=== PATIENT | male | born 2000 | race Caucasian/White ===

== ENCOUNTER 2020-01-15 14:55 | Emergency (ER) | payer OTHER, SELFPAY ==
[2020-01-15 15:03] VITALS: BP 141/87; PULSE 79; RESP 16; TEMP 37.3; O2SAT 100
--- NOTE | 2020-01-15 15:25 | ED.URI ---
HPI - URI/Sore Throat General Chief Complaint: Upper Respiratory Infection Stated Complaint: SORE THROAT Time Seen by Provider: 01/15/20 15:25 Source: patient Mode of arrival: ambulatory Limitations: no limitations History of Present Illness HPI Narrative: A 19 y/o male, who is an occasional smoker/occasional drinker, presents to with c/o a sore throat for 2 days. Pt states that he last took antibiotics 2 weeks ago for similar complaints. He denies an earache, TA, and a cough. Onset (ago): day(s) (2) Related Data Home Medications Medication Instructions Recorded Confirmed amoxicillin 01/15/20 Allergies Allergy/AdvReac Type Severity Reaction Status Date / Time No Known Allergies Allergy Mild Verified 01/15/20 15:11 Review of Systems Review of Systems: Narrative: The patient has been informed that they may have pre-hypertension or Hypertension based on a BP reading in the department. I recommend that the patient call the primary care provider listed on their discharge instructions or a physician of their choice this week to arrange follow up for further evaluation of possible pre-hypertension or Hypertension General/Constitutional: No weight loss,fever Eyes: N0: Redness,discharge Ears/Nose/Throat: No: Epistaxis,ear discharge Respiratory: Denies: Hemoptysis Gastrointestinal: No Vomiting, Bleeding-rectal Skin: No Lumps, eruption Neurologic: No Focal Weakness,Sz Hematologic: Denies: Petechiae/Purpura Psychiatric: No: Suicida ideationl All Other Systems: Reviewed and Negative [facility] Surgical History Surgical History (Updated 01/15/20 @ 15:32 by Luly Stanton) History of inguinal hernia repair x2 Social History Social History (Updated 01/15/20 @ 15:32 by Luly Stanton) Smoking status: Current some day smoker Alcohol intake: current Comments PCP: Dr. Sage At time of signature, agree with nursing past medical, surgical, social and family history. There is no relevant family history pertinent to the presenting complaint Course Vital Signs Vital signs: Vital Signs Temperature 99.1 F 01/15/20 15:03 Pulse Rate 79 01/15/20 15:03 Respiratory Rate 16 01/15/20 15:03 Blood Pressure 141/87 H 01/15/20 15:03 Pulse Oximetry 100 01/15/20 15:03 Temperature 99.1 F 01/15/20 15:03 Pulse Rate 79 01/15/20 15:03 Respiratory Rate 16 01/15/20 15:03 Blood Pressure 141/87 H 01/15/20 15:03 Pulse Oximetry 100 01/15/20 15:03 MDM - URI/Sore Throat Lab Data Labs: Strep Screen Presumptive Negative *(Reference Range: Negative)* Discharge Plan Discharge Clinical Impression: Pharyngitis Qualifiers: Pharyngitis/tonsillitis etiology: unspecified etiology Qualified Code(s): J02.9 - Acute pharyngitis, unspecified Patient Disposition: Home, Self-Care Condition: Stable Instructions: Antibiotic Form, Pharyngitis (ED) Prescriptions: New amoxicillin-pot clavulanate [Augmentin] 500-125 mg tablet 1 tablet PO Q12H Qty: 20 RF: 0 Lidocaine Viscous 2 % solution 5 ml MUCOUS MEM QID PRN (Reason: pain) Qty: 100 RF: 0 No Action amoxicillin RF: 0 Interventions: Discharge Disposition Last Done: 01/15/20 15:33 Follow-up/Referrals: UNKNOWN,DOCTOR [Primary Care Provider] - Stand Alone Forms: Work/School Release IP Discharge Date/Time: 01/15/20 15:33
== END 2020-01-15 15:33 | disposition home or self-care (01) ==
PROVIDERS: Emergency Provider Emergency Medicine
DX: J02.9 Acute pharyngitis, unspecified (principal); Z72.0 Tobacco use
CPT/HCPCS: 87081; 87880; 99203; G0463

== ENCOUNTER 2022-03-12 17:28 | Emergency (ER) | payer SELFPAY ==
[2022-03-12 17:33] VITALS: BP 134/77; PULSE 64; RESP 16; TEMP 37; O2SAT 100
--- NOTE | 2022-03-12 17:41 | ED.GENADULT ---
HPI - General Adult General Chief complaint: Nausea/Vomiting/Diarrhea Stated complaint: acif reflux/throat swelling Time Seen by Provider: 03/12/22 17:40 Source: patient Mode of arrival: ambulatory Limitations: no limitations History of Present Illness HPI narrative: 21-year-old male presents with complaint of acid reflux for approximately 2 weeks. Not taking any bryo-yrl-vdqvouj medications to treat his symptoms. States that he wakes up and throat has been feeling raw. The last 2 days his throat feels swollen and like something is stuck in it. Reports that he had indigestion a year ago that lasted about 5 months. States that he took Tums which never seem to help. He reports that he eats a lot of fast food. He does not have a primary care physician to follow-up with. He states that he does not have health insurance and will not be able to be seen anywhere else at this time. He denies abdominal pain but reports nausea at times. No vomiting. Having normal bowel movements. Patient going on a camping trip this weekend and wanted to make sure it was okay if he went camping with the symptoms. All systems reviewed and negative except as noted above. Related Data Allergies Allergy/AdvReac Type Severity Reaction Status Date / Time No Known Allergies Allergy Mild Verified 01/15/20 15:11 Review of Systems Review of Systems: CONSTITUTIONAL: Denies fever, chills, or sweats. EYES: Denies visual changes, redness, or discharge. ENT: Denies rhinorrhea, congestion, sore throat, or otalgia. CARDIOVASCULAR: Denies chest pain, palpitations, or edema. RESPIRATORY: Denies cough or dyspnea. GASTROINTESTINAL: Denies abdominal pain, vomiting, or diarrhea. Reports indigestion and nausea. GENITOURINARY: Denies dysuria or hematuria. SKIN: Denies rash or itching. MUSCULOSKELETAL: Denies back pain, joint pain, or myalgia. NEUROLOGIC: Denies headache, numbness, or weakness. PSYCHIATRIC: Denies anxiety or depression. All other systems reviewed are negative, except as documented in HPI. [facility] Surgical History Surgical History (Updated 01/15/20 @ 15:32 by Luly Stanton) History of inguinal hernia repair x2 Social History Social History (Updated 01/15/20 @ 15:32 by Luly Stanton) Smoking status: Current some day smoker Alcohol intake: current Comments At time of signature, agree with nursing past medical, surgical, social and family history. There is no relevant family history pertinent to the presenting complaint. Exam Narrative: GENERAL: This is a well-nourished, well-developed patient, in no apparent distress. HEAD: normocephalic, atraumatic. EYES: PERRL. Sclera clear/white. Vision is grossly intact. EARS: External ears normal NOSE: External nose normal THROAT: Mucous membranes moist, posterior pharynx clear. NECK: Neck supple, non-tender without lymphadenopathy, masses or thyromegaly. CARDIOVASCULAR: Regular rate and rhythm without murmurs, gallops, or rubs. RESPIRATORY: Clear to auscultation. Breath sounds equal bilaterally. No wheezes, rales, or rhonchi. GASTROINTESTINAL: Abdomen soft, non-tender, nondistended. Bowel sounds are active. No hepato-splenomegaly, or palpable masses. No guarding. SKIN: warm, Dry, intact with no suspicious lesions or rash, good texture and turgor. NEURO: awake, alert, and oriented to person, place and time. There were no obvious focal neurologic abnormalities. EXTREMITIES: Normal range of motion all extremities. Course Course Level of Care: Express Care Visit Vital Signs Vital signs: Vital Signs Temperature 37.0 C 03/12/22 17:33 Pulse Rate 64 03/12/22 17:33 Respiratory Rate 16 03/12/22 17:33 Blood Pressure 134/77 03/12/22 17:33 Pulse Oximetry 100 03/12/22 17:33 Temperature 37.0 C 03/12/22 17:33 Pulse Rate 64 03/12/22 17:33 Respiratory Rate 16 03/12/22 17:33 Blood Pressure 134/77 03/12/22 17:33 Pulse Oximetry 100 03/12/22 17:33 Reviewed Medical Dec
== END 2022-03-12 17:59 | disposition home or self-care (01) ==
PROVIDERS: Emergency Provider Nurse Practitioner Family
DX: K30 Functional dyspepsia (principal); F17.200 Nicotine dependence, unspecified, uncomplicated
CPT/HCPCS: 99213; G0463

== ENCOUNTER 2023-09-26 16:52 | Emergency (ER) | payer OTHER, SELFPAY ==
[2023-09-26 17:04] VITALS: BP 117/90; PULSE 77; RESP 20; TEMP 37; O2SAT 100
--- NOTE | 2023-09-26 17:11 | ED.UPPEXIN ---
HPI - Extremity Injury (Upper) General Chief Complaint: Extremity Injury, Upper Stated Complaint: left arm pain Time Seen by Provider: 09/26/23 17:11 Source: patient Mode of arrival: ambulatory Limitations: no limitations History of Present Illness HPI narrative: 23-year-old male presents with left upper arm pain For 2 days. Patient states that his car recently broke down and he has been riding his bike. Also states that he has to carry his bike up a flight of stairs into his Apartment. Also has been sleeping in recliner. 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 Is unsure what is causing pain to left arm. Has not tried any xpuh-lcr-fhwulga medications to treat his symptoms. Patient has full range of motion. Denies numbness tingling. No weakness or swelling to left upper extremity. all systems reviewed and negative except as noted above. Related Data Allergies Allergy/AdvReac Type Severity Reaction Status Date / Time No Known Allergies Allergy Mild Verified 09/26/23 17:03 Review of Systems Review of Systems: CONSTITUTIONAL: Denies fever, chills, or sweats. EYES: Denies visual changes, redness, or discharge. ENT: Denies rhinorrhea, congestion, sore throat, or otalgia. CARDIOVASCULAR: Denies chest pain, palpitations, or edema. RESPIRATORY: Denies cough or dyspnea. GASTROINTESTINAL: Denies abdominal pain, nausea, vomiting, or diarrhea. GENITOURINARY: Denies dysuria or hematuria. SKIN: Denies rash or itching. MUSCULOSKELETAL: Denies back pain, joint pain, or myalgia. Reports pain to left upper extremity. NEUROLOGIC: Denies headache, numbness, or weakness. PSYCHIATRIC: Denies anxiety or depression. All other systems reviewed are negative, except as documented in HPI. [facility] Surgical History Surgical History (Updated 01/15/20 @ 15:32 by Luly Stanton) History of inguinal hernia repair x2 Social History Social History (Updated 01/15/20 @ 15:32 by Luly Stanton) Smoking status: Current some day smoker Alcohol intake: current Comments At time of signature, agree with nursing past medical, surgical, social and family history. There is no relevant family history pertinent to the presenting complaint. Exam Narrative: GENERAL: This is a well-nourished, well-developed patient, in no apparent distress. HEAD: normocephalic, atraumatic. EYES: PERRL. Sclera clear/white. Vision is grossly intact. EARS: External ears normal NOSE: External nose normal NECK: Neck supple, non-tender without lymphadenopathy, masses or thyromegaly. CARDIOVASCULAR: Regular rate and rhythm without murmurs, gallops, or rubs. RESPIRATORY: Clear to auscultation. Breath sounds equal bilaterally. No wheezes, rales, or rhonchi. SKIN: warm, Dry, intact with no suspicious lesions or rash, good texture and turgor. NEURO: awake, alert, and oriented to person, place and time. There were no obvious focal neurologic abnormalities. EXTREMITIES: No joint tenderness, effusion, or edema noted. generalized tenderness to L upper arm. full ROM, distal NV intact. strength normal. Course Course Level of Care: Express Care Visit Vital Signs Vital signs: Vital Signs Temperature 37.0 C 09/26/23 17:04 Pulse Rate 77 09/26/23 17:04 Respiratory Rate 20 09/26/23 17:04 Blood Pressure 117/90 09/26/23 17:04 Pulse Oximetry 100 09/26/23 17:04 Oxygen Delivery Room Air 09/26/23 17:04 Temperature 37.0 C 09/26/23 17:04 Pulse Rate 77 09/26/23 17:04 Respiratory Rate 20 09/26/23 17:04 Blood Pressure 117/90 09/26/23 17:04 Pulse Oximetry 100 09/26/23 17:04 Oxygen Delivery Room Air 09/26/23 17:04 Reviewed MDM - Extremity Injury (Upper) MDM Narrative Medical decision making narrative: Patient is aware of diagnosis, understands and agrees to treatment plan. Anticipatory guidance given. Patient agrees to follow-up as directed and is aware of reasons to seek care at
== END 2023-09-26 17:36 | disposition home or self-care (01) ==
PROVIDERS: Emergency Provider Nurse Practitioner Family
DX: S46.912A Strain of unspecified muscle, fascia and tendon at shoulder and upper arm level, left arm, initial encounter (principal); X58.XXXA Exposure to other specified factors, initial encounter; F17.200 Nicotine dependence, unspecified, uncomplicated
CPT/HCPCS: 99213; A4565; G0463

== ENCOUNTER 2024-03-16 23:35 | Emergency (ER) | payer OTHER, SELFPAY ==
[2024-03-16 23:38] VITALS: BP 154/113; PULSE 104; RESP 20; TEMP 37.2; O2SAT 98
--- NOTE | 2024-03-16 23:50 | ED.PSYCH ---
HPI - Psych General Chief Complaint: Psychiatric Symptoms Stated Complaint: SI Time Seen by Provider: 03/16/24 23:36 History of Present Illness HPI Narrative: 23-year-old male with a reported history of schizophrenia presents to emergency department via EMS or plans to kill himself and 6 years if he does not stop using drugs by his dog eyes. Upon my evaluation, patient denies thoughts or plan of harming himself or other people's. States he reported to the emergency department today because he is desiring to stop using drugs. He admits he using methamphetamines within the past 24 hours and uses marijuana daily. He denies alcohol use. States he has to take Invega for schizophrenia but has been out of it for multiple months. He is currently staying at [facility]. No other complaints. Related Data Allergies Allergy/AdvReac Type Severity Reaction Status Date / Time No Known Allergies Allergy Mild Verified 09/26/23 17:03 Review of Systems Review of Systems: CONSTITUTIONAL: Denies fever, chills, or sweats. EYES: Denies visual changes, redness, or discharge. ENT: Denies rhinorrhea, congestion, sore throat, or otalgia. CARDIOVASCULAR: Denies chest pain, palpitations, or edema. RESPIRATORY: Denies cough or dyspnea. GASTROINTESTINAL: Denies abdominal pain, nausea, vomiting, or diarrhea. GENITOURINARY: Denies dysuria or hematuria. SKIN: Denies rash or itching. MUSCULOSKELETAL: Denies back pain, joint pain, or myalgia. NEUROLOGIC: Denies headache, numbness, or weakness. PSYCHIATRIC: See HPI [facility] Surgical History Surgical History History of inguinal hernia repair x2 Social History Social History Smoking status: Current some day smoker Alcohol intake: current Exam Narrative: GENERAL: Well-appearing, well-nourished, and in no acute distress. HEAD: Normocephalic, atraumatic. NECK: Supple. CHEST: Clear to auscultation. No respiratory distress. HEART: Regular rate and rhythm. No murmur heard. Normal peripheral pulses. EXTREMITIES: Normal range of motion. No edema. SKIN: Warm, dry, no rash. NEURO: No focal deficits. Alert and oriented x3 PSYCH: Denies SI or HI. Denies auditory hallucinations. States he saw a reflection in his window a few days ago otherwise denies visual hallucinations. He is speaking very quickly, pressured speech, cursing intermittently. Course Vital Signs Vital signs: Vital Signs Temperature 98.9 F 03/16/24 23:38 Pulse Rate 104 H 03/16/24 23:38 Respiratory Rate 20 03/16/24 23:38 Blood Pressure 154/113 H 03/16/24 23:38 Pulse Oximetry 98 03/16/24 23:38 Oxygen Delivery Room Air 03/16/24 23:38 Temperature 98.9 F 03/16/24 23:52 Pulse Rate 104 H 03/16/24 23:52 Respiratory Rate 20 03/16/24 23:52 Blood Pressure 154/113 H 03/16/24 23:52 Pulse Oximetry 98 03/16/24 23:52 Oxygen Delivery Room Air 03/16/24 23:38 MDM - Psych MDM Narrative Medical decision making narrative: 23-year-old male with a reported history of schizophrenia and methamphetamine abuse presents to emergency department via EMS from [facility] for assistance with drug cessation. He denies SI or HI multiple times upon my evaluation. He is not acutely psychotic. I do not feel he requires further evaluation at this time bu Crisis and I feel he is safe for outpatient management. [facility] resources provided. Strict ED return precautions provided. He is agreeable to plan verbalized understanding. Discharged in stable condition. Discharge Plan Discharge Clinical Impression: Methamphetamine abuse Patient Disposition: Home, Self-Care Condition: Stable Instructions: Antibiotic Form, Methamphetamine Use Disorder (ED) Additional Instructions: Please stop using methamphetamine. Please follow-up with the outpatient psychiatric services for follow-up
[2024-03-16 23:52] VITALS: BP 154/113; PULSE 104; RESP 20; TEMP 37.2; O2SAT 98
== END 2024-03-16 23:55 | disposition home or self-care (01) ==
PROVIDERS: Emergency Provider Physician Assistant
DX: F15.10 Other stimulant abuse, uncomplicated (principal); F20.9 Schizophrenia, unspecified; Z91.148 Patient's other noncompliance with medication regimen for other reason
CPT/HCPCS: 99281

== ENCOUNTER 2025-02-03 08:45 | Emergency (ER) | payer SELFPAY ==
[2025-02-03 09:01] VITALS: BP 118/71; PULSE 55; RESP 20; TEMP 36.7; O2SAT 100
== END 2025-02-03 09:20 | disposition left against medical advice (07) ==
PROVIDERS: PCP Internal Medicine
DX: Z53.21 Procedure and treatment not carried out due to patient leaving prior to being seen by health care provider (principal)
CPT/HCPCS: 99199

== ENCOUNTER 2025-02-03 09:42 | Emergency (ER) | payer SELFPAY ==
--- NOTE | 2025-02-03 10:05 | PC.NURSE ---
PT CALLED FOR TRIAGE. NO ANSWER.
--- NOTE | 2025-02-03 10:15 | PC.NURSE ---
PT CALLED FOR TRIAGE. NOT FOUND IN WAITING ROOM OR OUTSIDE.
--- OUTSIDE RECORDS SUMMARY | 2025-02-03 10:44 | XMS_ITS | Clinical Summary ---
Author Organization [facility] [address] [facility] Address [address] [place] [address] Care Team Providers Care Gem Cutter Name Role Phone Anthony Luo MD Primary Care Provider [phone] Allergies Active Allergy Reactions Criticality Noted Date Comments Quetiapine Unknown 11/17/2015 Medications No known medications Active Problems Problem Noted Date Diagnosed Date Primary insomnia 12/02/2017 Paranoid ideation 11/01/2015 Surgical History Surgery Date Site/Laterality Comments HERNIA REPAIR x2 Family History Medical History Relation Name Comments No Known Problems Father Lung cancer Maternal Grandmother No Known Problems Mother Relation Name Status Comments Father Alive Maternal Grandmother Mother Alive Social History Tobacco Use Types Packs/Day Years Used Date Smoking Tobacco: Never Smokeless Tobacco: Never Alcohol Use Standard Drinks/Week Comments Never 0 (1 standard drink = 0.6 oz pur e alcohol) AUDIT-C Answer Date Recorded Frequency of Alcohol Consumption Never 08/05/2019 Average Number of Drinks Not on file 019 Frequency of Binge Drinking Not on file 03/2019 PHQ-2 Answer Date Recorded PHQ-2 Score 0 08/05/2019 Personal Safety Answer Date Recorded Have you ever been in or are you currently in a harmful physical or emotional relationship or is someone making you feel afraid or unsafe? 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 Gender Identity Not on file Sexual Orientation Not on file Obstetrics History Last Filed Vital Signs Vital Sign Reading Time Taken Comments Blood Pressure 128/91 05/25/2024 1:27 PM CDT Pulse 89 05/25/2024 1:27 PM CDT Temperature 36.9 C (98.4 F) 05/25/2024 1:27 PM CDT Respiratory Rate 16 05/25/2024 1:27 PM CDT Oxygen Saturation 97% 05/25/2024 1:27 PM CDT Inhaled Oxygen Concentration - - Weight 90.4 kg (199 lb 4.7 oz) 05/25/2024 1:27 P M CDT Height 175.3 cm (5' 9 ) 05/25/2024 1:27 PM CDT Body Mass Index 29.43 05/25/2024 1:27 PM CDT Plan of Treatment Not on file Insurance [employer]IG[employer] AETNA [facility] Care Teams Gem Cutter Relationship Specialty Start Date End Date Anthony Luo MD PCP - General Family Medicine 08/04/19
--- OUTSIDE RECORDS SUMMARY | 2025-02-03 10:44 | XMS_ITS | Referral Summary ---
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
--- OUTSIDE RECORDS SUMMARY | 2025-02-03 10:44 | XMS_ITS ---
Author Organization [facility] Address [address] [place] [address] Care Team Providers Care Wheel Fitter Name Role Phone Jayce Delgado Primary Care Provider [phone] Angella Ramos Unavailable [phone] Jacey Dallas Unavailable [phone] REASON FOR VISIT PRAPARE Assessment Social History Tobacco Use: Social History Observation Description Date Details (start date - stop date) Current some da y smoker NA - NA Dont use, Tobacco Use/Smoking Question Answer Notes Are you a current smoker Alcohol Screen (Audit-C) Question Answer Notes Did you have a drink containing alcohol in the p ast year? Yes PRAPARE Question Answer Notes Date Completed/Updated: 12/08/2024 What is your current housing situation? I have h ousing Are you worried about losing your housing? No What is the highest level of school that you have finished? 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 Check all that apply I do not have problems meeting my needs Has lack of transportation k ept you from medical appointments, meetings, work or from getting things needed for daily living? No How often do you see or talk to people that you care about and feel close to? (For example: talking to friends on the phone, visiting friends or family, going to voodoo or club meetings) More than 5 times a week How stressed are you? Stress is when someone feels tense, nervous, anxious, or can\t sleep at night because their mind is troubled Quite a bit In the past year have you sp ent more than 2 nights in a row in a retirement, chcf, shelter center, or juvenile correctional facility? No Are you a refugee? No What country are you from? [place] Do you feel physically and e motionally safe where you currently live? Yes In the past year, have you b een afraid of your partner or ex-partner? No PRAPARE Score: 6 Enabling Services Provided? Yes Please specify Case Management Appointment Made Tobacco Control (Standard) Question Answer Notes Tobacco use: Current some day smoker Additional Findings: Tobacco user e-cigarette Encounters Encounter Location Date Provider Diagnosis [address] [place] [address] 12/09/2024 Jacey Dallas Plan Of Treatment No Information Progress Notes * HARMEET TenzinDOB: 9 (24 yo M)Acc No.[id number]:12/09/2024 Patient: Tenzin PALOMO :2000 A ge:24 Y S ex:Male Phone: Address:[address] [place] [address], [address], [place] [address] Subjective: * Chief Complaints: * P ROSE Assessment * Medical History: * Surgical History: * Hospitalization/Major Diagno stic Procedure: * Social History: S ocial Determinants: [place] ate Completed/Updated: 0 12/08/2024, W hat is your current housing situation? I have housing, A re you worried about losing your housing? N o, W hat is the highest level of school that you have finished? H igh school diploma or GED, W hat is your current work situation? P art time or temporary work, I n the past year, have you or any family members you live with been unable to get any of the following when it was really needed? Check all that apply I do not have problems meeting my needs, H as lack of transportation kept you from medical appointments, meetings, work or from getting things needed for daily living? N o,?How often do you see or talk to people that you care about and feel close to? (For example: talking to friends on the phone, visiting friends or family, going to voodoo or club meetings) M ore than 5 times a week, H ow stressed are you? Stress is when someone feels tense, nervous, anxious, or can\t sleep at night because their mind is troubled Q uite a bit, I n the past year have you spent more than 2 nights in a row in a retirement, chcf, shelter center, or juvenile correctional facility? N o, A re you a refugee? N o, W hat country are you from[place], D o you feel physically and emotionally safe where you currently live? Y es, I n the past year, have you been afraid of your partner or ex-partner? N o, P RAPARE Score: 6, E nabling Services Provided? Y es, P lease specify C ase Management Appointment Made. T obacco Use: D ont use, Tobacco Use/Smoking A re you a c urrent smoker. T obacco Control (Standard) T obacco use: C urrent some day smoker, A dditional Findings: Tobacco user e -cigarette. D rugs/Alcohol: A lcohol Screen (Audit-C) D id you have a drink containing alcohol in the past year? Y es. 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
--- OUTSIDE RECORDS SUMMARY | 2025-02-03 10:44 | XMS_ITS ---
Author Organization [facility] Address [address] [place] [address] Care Team Providers Care Care Taker Name Role Phone Jayce Delgado Primary Care Provider Angella Ramos Unavailable [phone] Elissa Pope Unavailable [phone] Allergies No Known Allergies REASON FOR VISIT follow up hospital Medications Medication SIG (Take, Route, Frequency, Duration) Notes Start Date End Date Status hydrOXYzine HCl 25 MG 1 tablet as needed Orally twice a day for 30 days As needed 04/23/2024 Not-Taking Vraylar 3 MG 1 capsule Orally Onc e a day for 30 days 03/25/2024 Not-Taking Mirtazapine 15 MG 1 tablet at bedtime Orally Once a day for 30 days 10/22/2024 Active Benztropine Mesylate 0.5 MG 1 tablet Orally twice a day for 30 days 10/22/2024 Active Social History Tobacco Use: Social History Observation Description Date Details (start date - stop date) Current some da y smoker NA - NA Tobacco Control (Standard) Question Answer Notes Tobacco use: Current some day smoker Additional Findings: Tobacco user e-cigarette Vital Signs Weight 206.7 lbs 10/22/2024 Height 70 in 10/22/2024 BMI 29.66 kg/m2 10/22/2024 Blood pressure systolic 122 mm Hg 10/22/20 24 Blood pressure diastolic 84 mm Hg 024 Heart Rate 92 /min 10/22/2024 Oximetry 97 % 10/22/2024 Temperature 97.2 degrees Fahrenheit 10/22/20 24 Respiratory Rate 18 /min 10/22/2024 Encounters Encounter Location Date Provider Diagnosis [address] [place] [address] 10/22/2024 Elissa Pope Schizophrenia spectrum disorder with psychotic disorder type not yet determined F29 and Nicotine dependence, unspecified, uncomplicated F17.200 Assessments Encounter Date Diagnosis (ICD Code) Assessment Notes Treatment Notes Treatment Clinical Notes Section Notes 10/22/2024 Schizophrenia spectrum disorder with psychotic disorder type not yet determined (ICD-10 - F29) R/t heavy drug use in past Stop Abilify due to side effects. He received the injection while hospitalized. Benztropine started for akathesia. He is going to take 1 tab now (when ready from pharmacy) and one tonight, then BID. He will also start Mirtazapine for sleep and anxiety. He is not agreeable at this time to consider an alternative antipsychotic medication, but again, he had just started the injection. He states that if the akathesia does not improve, he will go to the ER. May self-administer medications or be administered own oral medications per [place] protocols. Provided informed consent with understanding of side effects, adverse effects, risks and benefits as well as alternative treatments as previously discussed and with the above recommended medications & other aspects of the treatment program. Agrees to return sooner if symptoms worsen or suicidal or homicidal ideations occur. 10/22/2024 Nicotine dependence, unspecified, uncomplicated (ICD-10 - F17.200) Plan Of Treatment Medication Medication Name Sig Start Date Stop Date Notes Abilify Maintena 400 MG as directed Intramuscular Mirtazapine 15 MG 1 tablet at bedtime Orally Once a day for 30 days 10/22/2024 Benztropine Mesylate 0.5 MG 1 tablet Ora lly twice a day for 30 days 10/22/2024 Treatment Notes Assessment Notes Schizophrenia spectrum disor supa with psychotic disorder type not yet determined Stop Abilify due to side effects. He received the injection while hospitalized. Benztropine started for akathesia. He is going to take 1 tab now (when ready from pharmacy) and one tonight, then BID. He will also start Mirtazapine for sleep and anxiety. He is not agreeable at this time to consider an alternative antipsychotic medication, but again, he had just started the injection. He states that if the akathesia does not improve, he will go to the ER. May self-administer medications or be administered own oral medications per [place] protocols. Provided informed consent with understanding of side effects, adverse effects, risks and benefits as well as alternative treatments as previously discussed and with the above recommended medications & other aspects of the treatment program. Agrees to return sooner if symptoms worsen or suicidal or homicidal ideations occur. Next Appt Details Follow Up: 4 Weeks, Reason: Medication management - can be telehealth appt. Progress Notes * Tenzin GADOB: [birth year] (24 yo M)Acc No.[id number]:10/22/2024 Patient: Tenzin PALOMO Provider: Isis Pope DNP, PMHNP-BC, BOOKING SUPERVISOR :2000 A ge:24 Y S ex:Male Date:10/22/2024 Phone: Address:[address] [place] [address], [id number], [id number] Pcp:Jayce Delgado Subjective: * Chief Complaints: * F [employer] * HPI: D epression Screening: PHQ-9 L ittle interest or pleasure in doing things?Not at all F eeling down, depressed, or hopeless M ore than half the days T rouble falling or staying asleep, or sleeping too much M ore than half the days F eeling tired or having little energy N early every day P oor appetite or overeating M ore than half the days F eeling bad about yourself or that you are a failure, or have let yourself or your family down S everal days T rouble concentrating on things, such as reading the newspaper or watching television M ore than half the days M oving or speaking so slowly that other people could have noticed; or the opposite, being so fidgety or restless that you have been moving around a lot more than usual M ore than half the days T houghts that you would be better off or of hurting yourself in some way N ot at all T otal Score 1 4 I nterpretation M oderate Depression Intervention D epression Screening Findings P ositive F ollow-Up for Depression N o Referral necessary, patient involved in behavioral health treatment . S creening: Royal Suicide Severity Rating Scale (LF) D o you want to initiate with S creener form 1 . Wish to be : Have you wished you were or wished you could go to sleep and not wake up? N o 2 . Suicidal Thoughts: Have you actually had any thoughts of killing yourself? N o 6 . Suicide Behaviour: Have you ever done anything,started to do anything, or prepared to end your life? N o I nterpretation: L ow Risk P sych F/U: Patient presents for psychiatric follow-up visit. Changes since last visit?: S hunter he doesn't feel he needs the medication. Has akathisia after having the abilify injection. Restless movement legs and movement. difficulty sitting still stands up to walk. Feels anxious. States he stopped marijuana 2 weeks ago when he found out his girlfriend is . . Coping skills? V ideo games. Starting a job. . Effectiveness of medications: N o, patient denies that medications are effective. Medication Adherence: R eports taking medications as prescribed- injection. Side effects to medications?: A dmits side effects to medications (specify): Movement/akathesia. Sleep: A ppropriate sleep until the akaethesia. . Appetite A ppropriate appetite prior to akathesia. . ? Depression (10 = most depressed) O ccasional depression.?. Anxiety (10 = most anxious) I ntermittent, high anxiety.?. Anger/Irritability (10 is highest): Venancio harrison it has improved. Suicidal ideation: , Denies suicidal ideation. Wants the akathesia to stop. . Homicidal ideation: D enies homicidal ideation.. Hallucinations D enies. Medical concerns or hospitalizations? H ad been hospitalized. Started Abilify injection. Akathisia. . Therapy? Y es. Goals: T o not take medication for a while. . Are you satisfied with the medication? N o, I would like to change the medication or dose.. A bnormal Involuntary Movement Scale: Restlessness/akathisia. Facial and Oral Movements M uscles of Facial Expression 0 - None L ips and Perioral Area 0 - None J aw 0 - None T ongue 0 - None Extremity Movements U pper (arms, wrists, hands, fingers) 0 - None L ower (legs, knees, ankles, toes) 0 - None Trunk Movements N sergo, Shoulders and hips 0 - None Global Judgement S everity of abnormal movements overall 0 - None I ncapacitation due to abnormal movements 0 - None P atient's awareness of abnormal movements?0- No Awareness Dental Status C urrent problems with teeth and/or dentures?No A re dentures usually worn? N o E ndentia N o D o movements disappear with sleep? N o C SSRS Interpretation and Follow Up Plan: CSSRS Interpretation and Follow Up Plan. CSSRS Interpretation and Follow Up Plan M oderate or High risk requires selection of a follow up plan C SSRS No/Low: intervention not needed at this time * ROS: P sych ROS: Constitutional D enies. E yes D enies. E ars/Nose/Mouth/Throat D enies. R espiratory D enies. A llergic/Immunologic D enies.?Cardiovascular D enies. G I D enies. G U D enies. M usculoskeletal D enies. N eurological D enies. I ntegumentary D enies. E ndocrine D enies.?Hematological/Lymphatic D enies. P sych , Reports anxiety, Denies SI/HI/AH/VH. * Medical History: * Surgical History: R ight and left side hernia surgery. 2008, 2011 * [facility] Diagno [facility]ic [facility] * Family History: F ather: alive, Drug addict. Narcissistic. Mental illness. . M other: alive, Past drug addict. . M aternal Grand Father: , Lung cancer. . 2 brother(s) - healthy. . One brother . Alcoholic and had MVA. * Social History: P rimary Social History: L iving Arrangement L iving Arrangement: I ndependent Living I s this a supportive environment? Y es Alcohol Use A lcohol Use Frequency: M onthly or less Illicit Substance Usage I llicit Substance Usage: Y es Past user. 5 months clean. S ubstance Used: C annabis, Methamphetamine Employment Status E mployment Status: U nemployed T obacco Use: T obacco Control (Standard) T obacco use: C urrent some day smoker A dditional Findings: Tobacco user e -cigarette * Medications: T akingAbilify Maintena 400 MG Suspension Reconstituted ER as directed Intramuscular Taking Abilify Maintena 400 MG Suspension Reconstituted ER as directed Intramuscular Not-TakingVraylar 3 MG Capsule 1 capsule Orally Once a day hydrOXYzine HCl 25 MG Tablet 1 tablet as needed Orally twice a day As neededMedication List reviewed and reconciled with the patientNot-Taking Vraylar 3 MG Capsule 1 capsule Orally Once a day Not-Taking hydrOXYzine HCl 25 MG Tablet 1 tablet as needed Orally twice a day As neededMedication List reviewed and reconciled with the patient * Allergies: N .K.D.A.no[Allergies Verified] Objective: * Vitals: I nitials: kjs, Wt:206.7, Ht: 70, BMI:29.66, BP:122/84, HR:92, Oxygen sat %:97, Temp:97.2, RR:18, Pain scale:0. * Examination: M ental Status Exam: SENSORIUM AND COGNITION Alert , Oriented to Person , Oriented to Place , Oriented to Time , Oriented to Situation. ATTENTION AND CONCENTRATION N o deficits. APPEARANCE A ppropriate. ATTITUDE AND BEHAVIOR C ooperative , Receptive. MEMORY I mmediate , Recent , Remote. EYE CONTACT G ood. AFFECT , Anxious. MOOD , Dysphoric. SPEECH QUANTITY , Appropriate. SPEECH QUALITY S pontaneous , Fluent , Appropriate volume.? THOUGHT PROCESS C oherent and goal directed. THOUGHT CONTENT C ongruent with affect. LANGUAGE A ppropriate- WNL. MOTOR ACTIVITY N ormal gait , Goal directed , ,Agitated, akathisia movements. . SUICIDAL IDEATION D enies suicidal ideation. HOMICIDAL IDEATION D enies homicidal ideation. HALLUCINATIONS D enies hallucinations. INSIGHT F air. JUDGMENT F air. FUND OF KNOWLEDGE F air. ABILITY TO PARTICIPATE IN TREATMENT M oderate. WILLINGNESS TO PARTICIPATE IN TREATMENT M oderate. SIGNIFICANT FINDINGS REGARDING MENTAL STATUS N one. ? Assessment: * Assessment: 1. S chizophrenia spectrum disorder with psychotic disorder type not yet determined - F29 (Primary) N otes :R/t heavy drug use in past 2 . N icotine dependence, unspecified, uncomplicated - F17.200 ? Plan: * Treatment: * Procedure Codes: 9 9406 BEHAV CHNG SMOKING 3-10 MIN * Preventive Medicine: Counseling: S MOKING: Patient counselled on the dangers of tobacco use and urged to quit. . * Follow Up: 4 Weeks (Reason: Medication management - can be telehealth appt.) * * ATTENDANT Sign off status: Completed true * Provider: Isis Pope DNP, PMHNP-BC, BOOKING SUPERVISOR Date: 12/22/2023 Generated for Printing/Faxing/eTransmitting on: 0 02/03/2025 10:44 AM ROOM ATTENDANT History and Physical Notes * HPI (History of Present Illness) Category Sub-Category Detail Notes Category Not es Depression Screening PHQ-9 Little inte rest or pleasure in doing things: Not at all Feeling down, depressed, or hopeless: Mo re than half the days Trouble falling or staying a sleep, or sleeping too much: More than half the days Feeling tired or having little energy: N early every day Poor appetite or overeating: More than h bonny the days Feeling bad about yourself o r that you are a failure, or have let yourself or your family down: Several days Trouble concentrating on thi ngs, such as reading the newspaper or watching television: More than half the days Moving or speaking so slowly that other people could have noticed; or the opposite, being so fidgety or restless that you have been moving around a lot more than usual: More than half the days Thoughts that you would be b erin off or of hurting yourself in some way: Not at all Total Score: 14 Interpretation: Moderate Depression Intervention Depression Screening Findings: P ositive Follow-Up for Depression: No Referral necessary, patient involved in behavioral health treatment . Abnormal Involuntary Movement Scale Facial and Oral Movements Muscles of Facial Expression: 0- None Lips and Perioral Area: 0- None Jaw: 0- None Tongue: 0- None Extremity Movements Upper (arms, wrists, hands, fingers): 0- None Lower (legs, knees, ankles, toes): 0- No ne Trunk Movements Neck, Shoulders and hips: 0- Non e Global Judgement Severity of abnormal movements overall: 0- None Incapacitation due to abnormal movements : 0- None Patient's awareness of abnormal movement s: 0- No Awareness Dental Status Current problems with teeth and/ or dentures: No Are dentures usually worn?: No Endentia: No Do movements disappear with sleep?: No Psych F/U Changes since last visit?: State s he doesn't feel he needs the medication. Has akathisia after having the abilify injection. Restless movement legs and movement. difficulty sitting still stands up to walk. Feels anxious. States he stopped marijuana 2 weeks ago when he found out his girlfriend is . Effectiveness of medications: No, patien t denies that medications are effective Medication Adherence: Reports taking med ications as prescribed- injection Side effects to medications?: Admits saman e effects to medications (specify): Movement/akathesia Goals: To not take medicati on for a while. Coping skills? Video games. Startin g a job. Sleep: Appropriate sleep un til the akaethesia. Appetite Appropriate appetite prior to akathesia. Depression (10 = most depressed) Occasio nal depression. Anxiety (10 = most anxious) Intermittent , high anxiety. Anger/Irritability (10 is highest): Stat es it has improved Suicidal ideation: , Denies suicidal id eation. Wants the akathesia to stop. Homicidal ideation: Denies homicidal marquis ation. Hallucinations Denies Medical concerns or hospitalizations? Keane d been hospitalized. Started Abilify injection. Akathisia. Therapy? Yes Are you satisfied with the medication? N o, I would like to change the medication or dose. Screening Royal Suicide Sev erity Rating Scale (LF) Do you want to initiate with: Screener form 1. Wish to be : Have you wished you were or wished you could go to sleep and not wake up?: No 2. Suicidal Thoughts: Have you actually had any thoughts of killing yourself?: No 6. Suicide Behavior Question: Have you ever done anything,started to do anything, or prepared to end your life?: No Interpretation:: Low Risk Do Not Use CSSRS Interpretation and Follow Up Plan CSSRS Interpretation and Follow Up Plan Moderate or High risk requires selection of a follow up plan: CSSRS No/Low: intervention not needed at this time Examination Category Sub-Category Detail Notes Category Not es Mental Status Exam SENSORIUM AND COGNITION Alert , Oriented to Person , Oriented to Place , Oriented to Time , Oriented to Situation ATTENTION AND CONCENTRATION No deficits APPEARANCE Appropriate ATTITUDE AND BEHAVIOR Cooperative , Rece ptive MEMORY Immediate , Recent , Remote EYE CONTACT Good AFFECT , Anxious MOOD , Dysphoric SPEECH QUANTITY , Appropriate SPEECH QUALITY Spontaneous , Fluent , Appropriate volume THOUGHT PROCESS Coherent and goal di rected THOUGHT CONTENT Congruent with affec t MOTOR ACTIVITY Normal gait , Goal d irected , , Agitated, akathisia movements. SUICIDAL IDEATION Denies suicidal idea tion HOMICIDAL IDEATION Denies homicidal marquis ation HALLUCINATIONS Denies hallucination s INSIGHT Fair JUDGMENT Fair FUND OF KNOWLEDGE Fair ABILITY TO PARTICIPATE IN TREATMENT Mode rate WILLINGNESS TO PARTICIPATE IN TREATMENT Moderate SIGNIFICANT FINDINGS REGARDI NG MENTAL STATUS None LANGUAGE Appropriate- WNL
--- OUTSIDE RECORDS SUMMARY | 2025-02-03 10:44 | XMS_ITS | Patient Health Record ---
Author Organization [facility] Address [address] [place] [address] Care Team Providers Care Psychodramatist Name Role Phone Jayce Delgado Primary Care Provider [phone] Angella Ramos Unavailable [phone] Leonel Small Unavailable [phone] Elissa Pope Unavailable [phone] Jacey Dallas Unavailable [phone] Allergies No Known Allergies Reason For Referral No Information Medications Medication SIG (Take, Route, Frequency, Duration) Notes Start Date End Date Status Vraylar 3 MG 1 capsule Orally Onc e a day for 30 days 03/25/2024 Not-Taking hydrOXYzine HCl 25 MG 1 tablet as needed Orally twice a day for 30 days As needed 04/23/2024 Not-Taking Mirtazapine 15 MG 1 tablet at bedtime Orally Once a day for 30 days 10/22/2024 Not-Taking Benztropine Mesylate 0.5 MG 1 tablet Orally twice a day for 30 days 10/22/2024 Not-Taking Social History Tobacco Use: Social History Observation Description Date Details (start date - stop date) Unknown Dont use, Tobacco Use/Smoking Question Answer Notes [...] GED 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 Stress is when someone feels tense, nervous, anxious, or can\t sleep at night because their mind is troubled Quite a bit In the past year have you sp ent more than 2 nights in a row in a senior care, detention, group home center, or juvenile correctional facility? No Are [...] Control (Standard) Question Answer Notes Tobacco use: Uses tobacco in other forms Additional Findings: Tobacco user e-cigarette Problems Problem Type SNOMED Code ICD Code Onset Dates Problem Status W/U Status Risk Notes Problem Tobacco user (764558455) Nicotine dependence, unspecified, uncomplicated (F17.200) 022 Active confirmed Problem Autism spectrum disorder (61946640) Autism spectrum disorder (F84.0) 018 Active confirmed Problem Schizoaffective disorder (78220904) Schizoaffective disorder (F25.9) 018 Active confirmed Problem Psychotic disorder (68299431) Schizophrenia spectrum disorder with psychotic disorder type not yet determined (F29) 018 Active confirmed R/t heavy drug use in past Vital Signs Heart Rate 61 /min 01/19/2025 Temperature 97.2 degrees Fahrenheit 10/22/2024 Respiratory Rate 16 /min 01/19/2025 Oximetry 92 % 01/19/2025 Blood pressure diastolic 70 mm Hg 01/19/2025 Height 70 in 01/19/2025 Blood pressure systolic 108 mm Hg 01/19/2025 Weight 225.7 lbs 01/19/2025 BMI 32.38 kg/m2 01/19/2025 Encounters Encounter Location Date Provider Diagnosis [facility] [address] [place] [address] 03/25/2024 Elissa Pope Schizophrenia spectr um disorder with psychotic disorder type not yet determined F29 ; Schizoaffective disorder F25.9 ; Autism spectrum disorder F84.0 and Nicotine dependence, unspecified, uncomplicated F17.200 [facility] [address] [place] [address] 04/22/2024 Elissa Pope Schizophrenia spectr um disorder with psychotic disorder type not yet determined F29 ; Autism spectrum disorder F84.0 ; Schizoaffective disorder F25.9 and Nicotine dependence, unspecified, uncomplicated F17.[address] [place] [address] 10/22/2024 Elissa Powers Schizophrenia spectr um disorder with psychotic disorder type not yet determined F29 and Nicotine dependence, unspecified, uncomplicated F17.[address] [place] [address] 01/19/2025 Jayce Delgado Sebaceous cyst L72.[address] [place] [address] 03/26/2024 Jayce Delgado Schizophrenia spectr um disorder with psychotic disorder type not yet determined F29 [address] [place] [address] 04/23/2024 Elissa Niko [address] [place] [address] 12/09/2024 Jacey Dallas Assessments Encounter Date Diagnosis (ICD Code) Assessment Notes Treatment Notes Treatment Clinical Notes Section Notes 01/19/2025 Sebaceous cyst (ICD-10 - L72.3) ADVISED TO AVOID MANIPULATION AND RETURN IF ANY CHANGES IN THE LESIONS OCCUR. 04/22/2024 Schizophrenia spectrum disorder with psychotic disorder type not yet determined (ICD-10 - F29) R/t heavy drug use in past Increase Vraylar to help with mood instability and psychosis. May self-administer medications or be administered own oral medications per [facility] protocols. Provided informed consent with understanding of side effects, adverse effects, risks and benefits as well as alternative treatments as previously discussed and with the above recommended medications & other aspects of the treatment program. Agrees to return sooner if symptoms worsen or suicidal or homicidal ideations occur. 10/22/2024 Schizophrenia spectrum disorder with psychotic disorder [...] or be administered own oral medications per [facility] protocols. Provided informed consent with understanding of side effects, adverse effects, risks and benefits as well as alternative treatments as previously discussed and with the above recommended medications & other aspects of the treatment program. Agrees to return sooner if symptoms worsen or suicidal or homicidal ideations occur. 03/25/2024 Schizoaffective disorder (ICD-10 - F25.9) 03/25/2024 Schizophrenia spectrum disorder with psychotic disorder type not yet determined (ICD-10 - F29) Start Vraylar to help with mood instability. Has been on Abilify, Seroquel, Risperdal in the past. Continue services as scheduled. May self-administer medications or be administered own oral medications per [facility] protocols. Provided informed consent with understanding of side effects, adverse effects, risks and benefits as well as alternative treatments as previously discussed and with the above recommended medications & other aspects of the treatment program. Agrees to return sooner if symptoms worsen or suicidal or homicidal ideations occur. 03/26/2024 Schizophrenia spectrum disorder with psychotic disorder type not yet determined (ICD-10 - F29) 04/22/2024 Autism spectrum disorder (ICD-10 - F84.0) 04/22/2024 Schizoaffective disorder (ICD-10 - F25.9) 03/25/2024 Autism spectrum disorder (ICD-10 - F84.0) 10/22/2024 Nicotine dependence, unspecified, uncomplicated (ICD-10 - F17.200) 04/22/2024 Nicotine dependence, unspecified, uncomplicated (ICD-10 - F17.200) 03/25/2024 Nicotine dependence, unspecified, uncomplicated (ICD-10 - F17.200) Plan Of Treatment No Information Insurance Providers Payer Name Payer Address Payer Phone Subscriber Number Group Number Insured Name Patient Relationship to Insured Coverage Start Date Coverage End Date [facility] [employer] [facility] [address] [place] [address] [id number] Tenzin Krishnan Self - patient is the insured [address] [place] [address] [id number] Tenzin Krishnan Self - patient is the insured 3 3 [employer] [address] [employer] [facility] [place] [address] [id number] Tenzin Krishnan Self - patient is the insured 3 3 [facility] [employer] [facility] [address] [place] [address] [id number] Tenzin Krishnan Self - patient is the insured 3 Medical (General) History Surgical History Surgery Date(Month/Year) Right and left side hernia surgery. 2008 Hospitalization History Reason Date(Month/Year) [facility] 10/2024 [facility]
--- OUTSIDE RECORDS SUMMARY | 2025-02-03 10:45 | XMS_ITS ---
Author Organization [facility] Address [address] [place] [address] Care Team Providers Care Senior Mechanical Design Engineer Name Role Phone Jayce Delgado Primary Care Provider Angella Ramos Unavailable [phone] Allergies No Known Allergies REASON FOR VISIT last seen 11/19/23--follow up. Pt c/o having a bump on his head and back for 8 months Medications Medication SIG (Take, Route, Frequency, Duration) [...] Details (start date - stop date) Unknown Tobacco Control (Standard) Question Answer Notes Tobacco use: Uses tobacco in other forms Additional Findings: Tobacco user e-cigarette Vital Signs Weight 225.7 lbs 01/19/2025 Height 70 in 01/19/2025 BMI 32.38 kg/m2 01/19/2025 Blood pressure systolic 108 mm Hg 01/19/20 25 Blood pressure diastolic 70 mm Hg 025 Heart Rate 61 /min 01/19/2025 Oximetry 92 % 01/19/2025 Respiratory Rate 16 /min 01/19/2025 Encounters Encounter Location Date Provider Diagnosis [address] [place] [address] 01/19/2025 Jayce Delgado Sebaceous cyst L72.3 Assessments Encounter Date Diagnosis (ICD Code) Assessment Notes Treatment Notes Treatment Clinical Notes Section Notes 01/19/2025 Sebaceous cyst (ICD-10 - L72.3) ADVISED TO AVOID MANIPULATION AND RETURN IF ANY CHANGES IN THE LESIONS OCCUR. Plan Of Treatment Next Appt Details Follow Up: 1 Year, Reason: A NNUAL CHECK Progress Notes * Tenzin KRISHNANDOB: [birth year] (24 yo M)Acc No.[id number]:01/19/2025 Progress Notes Patient: Tenzin PALOMO Provider: Parviz Delagdo :2000 A ge:24 Y S ex:Male Date:01/19/2025 Phone: Address:[address] [place] [address], [address], [place], [place] Subjective: * Chief Complaints: * l ast seen 11/19/23--follow up. Pt c/o having a bump on his head and back for 8 months * HPI: D epression Screening: PHQ-9 L ittle interest or pleasure in doing things?Not at all F eeling down, depressed, or hopeless N ot at all T rouble falling or staying asleep, or sleeping too much N ot at all F eeling tired or having little energy N ot at all P oor appetite or overeating N ot at all F eeling bad about yourself or that you are a failure, or have let yourself or your family down N ot at all T rouble concentrating on things, such as reading the newspaper or watching television N ot at all M oving or speaking so slowly that other people could have noticed; or the opposite, being so fidgety or restless that you have been moving around a lot more than usual N ot at all T houghts that you would be better off or of hurting yourself in some way N ot at all T otal Score 0 S creening: [place] Suicide Severity Rating Scale (LF) D o you want to initiate with S creener form 1 . Wish to be : Have you wished you were or wished you could go to sleep and not wake up? N o 2 . Suicidal Thoughts: Have you actually had any thoughts of killing yourself? N o 6 . Suicide Behavior Question: Have you ever done anything,started to do anything, or prepared to end your life? N o I nterpretation: L ow Risk C SSRS Interpretation and Follow Up Plan: CSSRS Interpretation and Follow Up Plan C SSRS Screen documented using SF Y es R isk Disposition from SF L ow - No Follow Up Plan Required F ollow Up Plan N o Follow Up Plan required at this time. I nterim History: PAINLESS KNOT ON HEAD NAD LEFT UPPER BACK. NOT ENLARGING. PRESENT FOR ABOUT 8 MONTHS.DENIED UNPROTECTED SEX. DENIED NEED FOR LABS. * ROS: B asic ROS: Denies R jeannette. * Medical History: * Surgical History: R ight and left side hernia surgery. 2008, 2011 * Hospitalization/Major Diagno stic Procedure: [facility] touchette 10/2024 * Family History: F ather: alive, Drug addict. Narcissistic. Mental illness. . M other: alive, Past drug addict. . M aternal Grand Father: , Lung cancer. . 2 brother(s) - healthy. . One brother . Alcoholic and had MVA. * Social History: P rimary Social History: L iving Arrangement L iving Arrangement: H omeless I s this a supportive environment? N o Alcohol Use A lcohol Use Frequency: M onthly or less Illicit Substance Usage I llicit Substance Usage: Y es Past user. 5 months clean. S ubstance Used: C annabis, Methamphetamine Employment Status E mployment Status: U nemployed T obacco Use: T obacco Control (Standard) T obacco use: U ses tobacco in other forms A dditional Findings: Tobacco user e -cigarette * Medications: N ot-TakingBenztropine Mesylate 0.5 MG Tablet 1 tablet Orally twice a day Mirtazapine 15 MG Tablet 1 tablet at bedtime Orally Once a day Vraylar 3 MG Capsule 1 capsule Orally Once a day hydrOXYzine HCl 25 MG Tablet 1 tablet as needed Orally twice a day As neededNot-Taking Benztropine Mesylate 0.5 MG Tablet 1 tablet Orally twice a day Not-Taking Mirtazapine 15 MG Tablet 1 tablet at bedtime Orally Once a day Not- Taking Vraylar 3 MG Capsule 1 capsule Orally Once a day Not-Taking hydrOXYzine HCl 25 MG Tablet 1 tablet as needed Orally twice a day As needed * Allergies: N .K.D.A.no[Allergies Verified] Objective: * Vitals: I nitials: dt, Wt:225.7, Ht: 70, BMI:32.38, BP:108/70, HR:61, Oxygen sat %:92, RR:16, Pain scale:0. * Examination: G eneral Examination: GENERAL APPEARANCE: w ell developed, well nourished, in no acute distress. SKIN: A BOUT 1/2 CM MOBILE NONTENDER SUBCUTANEOUS NODULE ON LEFT UPPER OCCIPITAL REGION, WITH ABOUT 1 CM SIMILAR NODULE ON LEFT UPPER BACK.. ? Assessment: * Assessment: 1. S ebaceous cyst - L72.3 (Primary) Plan: * Treatment: * Recommended Wellness and Pre vention Guidelines: * S tatus A lert L ast Done N ext Due A ction Taken N ONCOMPLIANT A lcohol use screening - 0 01/19/2025 - * Procedure Codes: 3 008F BODY MASS INDEX [id number] MEDICAL NUTRITION, INDIV, [id number] BEHAV CHNG SMOKING 3-10 MIN * Preventive Medicine: Counseling: C are goal follow-up plan: BMI management provided Y es Above Normal BMI Follow-up L ifestyle education regarding diet S MOKING: Patient counselled on the dangers of tobacco use and urged to quit. . * Follow Up: 1 Year (Reason: ANNUAL CHECK) * * CHER Sign off status: Completed true * Provider: Parviz Delgado Date: 01/19/2025 Generated for Bird figueredo/Favian/Shanel on: 0 02/03/2025 10:44 AM BRANCHER History and Physical Notes * HPI (History of Present Illness) Category Sub-Category Detail Notes Category Not es Depression Screening PHQ-9 Little inte rest or pleasure in doing things: Not at all Feeling down, depressed, or hopeless: No t at all Trouble falling or staying asleep, or sl eeping too much: Not at all Feeling tired or having little energy: N ot at all Poor appetite or overeating: Not at all Feeling bad about yourself o r that you are a failure, or have let yourself or your family down: Not at all Trouble concentrating on thi ngs, such as reading the newspaper or watching television: Not at all Moving or speaking so slowly that other people could have noticed; or the opposite, being so fidgety or restless that you have been moving around a lot more than usual: Not at all Thoughts that you would be b erin off or of hurting yourself in some way: Not at all Total Score: 0 Screening [place] Suicide Sev erity Rating Scale (LF) Do [...] end your life?: No Interpretation:: Low Risk CSSRS Interpretation and Follow Up Plan CSSRS Interpretation and Follow Up Plan CSSRS Screen documented using SF: Yes Risk Disposition from SF: Low - No Follo w Up Plan Required Follow Up Plan: No Follow Up Plan requir ed at this time. Examination Category Sub-Category Detail Notes Category Not es General Examination GENERAL APPEARANCE: well dev eloped, well nourished, in no acute distress SKIN: ABOUT 1/2 CM MOBILE NONTENDER SUBCUTANEOUS NODULE ON LEFT UPPER OCCIPITAL REGION, WITH ABOUT 1 CM SIMILAR NODULE ON LEFT UPPER BACK.
--- OUTSIDE RECORDS SUMMARY | 2025-02-03 12:43 | XMS_ITS | Referral Summary ---
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
--- OUTSIDE RECORDS SUMMARY | 2025-02-03 12:43 | XMS_ITS | Clinical Summary ---
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
== END 2025-02-03 11:15 | disposition left against medical advice (07) ==
LOC: ANHED 11:05
PROVIDERS: PCP Internal Medicine
DX: Z53.21 Procedure and treatment not carried out due to patient leaving prior to being seen by health care provider (principal)
CPT/HCPCS: 99199

== ENCOUNTER 2025-04-29 21:37 | Emergency (ER) | payer OTHER, SELFPAY ==
--- NOTE | ~2025-04-29 | XR_ITS ---
XR chest 1V portable Ordering provider: Kemar Millan MD History: 24 years Male with . hypoxia . Comparison: None. FINDINGS: MEDIASTINUM: The cardiac silhouette is slightly enlarged. LUNGS: No infiltrates, effusions or pneumothorax. OTHER: No free air under the diaphragm. IMPRESSION: No acute cardiopulmonary pathology. Reviewed, dictated and finalized at location A.
[2025-04-29 21:39] VITALS: BP 136/92; PULSE 91; RESP 10; TEMP 36.5; O2SAT 95
--- NOTE | 2025-04-29 21:41 | ED.ALCOHOL ---
HPI - Alcohol General Chief Complaint: Alcohol <Kemar Millan MD - Last Filed: 04/30/25 19:31> Stated Complaint: intoxicated <Kemar Millan MD - Last Filed: 04/30/25 19:31> Time Seen by Provider: 04/29/25 21:37 <Kemar Millan MD - Last Filed: 04/30/25 19:31> History of Present Illness HPI narrative: 24-year-old male with a past medical history including schizophrenia, suicidal ideation, methamphetamine abuse. Patient presents to the emergency department with a chief complaint of suicidal ideation and appears belligerent and intoxicated with substances versus alcohol versus combination of both. Police department was called to local store or patient was found belligerent outside yelling expletives. Patient did endorse suicidality and EMS was called. Patient presents to the emergency department and is belligerent and not making coherent sense but does verbalized that he wants to kill himself with an active plan. He is yelling expletives and asking for help. Appears very intoxicated. Brought back in the room 14 for evaluation. No physical signs of injury or trauma. Collateral formation provided by EMS. <Kemar Millan MD - Last Filed: 04/30/25 19:31> Related Data Home Medications: Home Medications ?Medication ?Instructions ?Recorded ?Confirmed ?Last Taken ?Type No Home Medications 02/03/25 Unknown History <Kemar Millan MD - Last Filed: 04/30/25 19:31> Allergies/Adverse Reactions: Allergies Allergy/AdvReac Type Severity Reaction Status Date / Time No Known Allergies Allergy Mild Verified 04/30/25 02:41 <Kemar Millan MD - Last Filed: 04/30/25 19:31> Review of Systems Review of Systems: ROS unobtainable: Yes unobtainable due to mental status <Kemar Millan MD - Last Filed: 04/30/25 19:31> [facility] Surgical History Surgical History: Surgical History History of inguinal hernia repair x2 <Kemar Millan MD - Last Filed: 04/30/25 19:31> Social History Social History: Social History Smoking status: Current some day smoker Alcohol intake: current Substance use type: marijuana and methamphetamine <Kemar Millan MD - Last Filed: 04/30/25 19:31> Exam Narrative: GENERAL: Belligerent and intoxicated, endorses suicidality HEAD: [Normocephalic, atraumatic.] EYES: [PERRLA and EOMI.] ENT: Nares clear, no rhinorrhea or epistaxis. Mucous membranes moist. NECK: Supple. CHEST: [Clear to auscultation. No respiratory distress.] HEART: [Regular rate and rhythm]. No murmur heard. [Normal peripheral pulses.] ABDOMEN: [Soft, nondistended], [nontender], [No rigidity or guarding] EXTREMITIES: Normal range of motion. [No edema.] SKIN: Warm, dry, no rash. NEURO: [No focal deficits]. Alert and oriented [x3.] Moving all extremities PSYCH: Suicidal, belligerent and yelling expletives <Kemar Millan MD - Last Filed: 04/30/25 19:31> Course Course Emergency Course: Patient clinically sober. He has been evaluated by crisis. No SI. He has been given a safety plan. Discharge. Walked out without receiving discharge paperwork. <Ladarius Pa MD - Last Filed: 04/30/25 15:05> Vital Signs Vital signs: Vital Signs Temperature 36.5 C 04/29/25 21:39 Pulse Rate 91 04/29/25 21:39 Respiratory Rate 10 L 04/29/25 21:39 Blood Pressure 136/92 H 04/29/25 21:39 Pulse Oximetry 95 04/29/25 21:39 Oxygen Delivery Room Air 04/29/25 21:39 Temperature 36.5 C 04/29/25 21:39 Pulse Rate 93 04/30/25 07:15 Respiratory Rate 18 04/30/25 07:15 Blood Pressure 119/58 L 04/30/25 07:15 Pulse Oximetry 100 04/30/25 07:15 Oxygen Delivery Room Air 04/29/25 21:39 <Kemar Millan MD - Last Filed: 04/30/25 19:31> Vital Signs Temperature 36.5 C 04/29/25 21:39 Pulse Rate 91 04/29/25 21:39 Respiratory Rate 10 L 04/29/25 21:39 Blood Pressure 136/92 H 04/29/25 21:39 Pulse Oximetry 95 04/29/25 21:39 Oxygen Delivery Room Air 04/29/25 21:39 Temperature 36.5 C 04/29/25 21:39 Pulse Rate 93 04/30/25 07:15 Respiratory Rate 18 04/30/25 07:15 Blood Pressure 119/58 L 04/30/25 07:15 Pulse Oximetry 100 04/30/25 07:15 Oxygen Delivery Room Air 04/29/25 21:39 <Ladarius Pa MD - Last Filed: 04/30/25 15:05> MDM - Alcohol MDM Narrative Medical decision making narrative: 24-year-old male presenting for suicidal ideation and intoxication. He has history of schizophrenia and suicidality, polysubstance abuse. He is very belligerent and intoxicated and endorsing active suicidality with a plan to kill himself. No signs of trauma. Psychiatric clearance laboratory studies were ordered. Alcohol level obtained. Patient will be observed here for sobriety and re-evaluated. Suicide and elopement precautions ordered. P.r.n. medications ordered. Patient's laboratory studies are reassuring. Chest x-ray is normal. No leukocytosis or anemia. Normal platelet count. Chest x-ray of the acute findings. Normal LFTs, normal TSH, largely unremarkable electrolytes, normal glucose. Urinalysis with no infection. Urine drug screen is negative. Alcohol severely elevated 329. Patient will be metabolically sober at about 8:00 a.m. for which time a repeat alcohol level be obtained he will be re-evaluated for medical clearance prior to crisis team evaluation. Patient signed out to oncoming ER physician. <Kemar Millan MD - Last Filed: 04/30/25 19:31> Medical Records Attestation: I reviewed the patient's medical records. <Kemar Millan MD - Last Filed: 04/30/25 19:31> Lab Data Attestation: I reviewed the patient's lab results. <Kemar Millan MD - Last Filed: 04/30/25 19:31> Result diagrams: 04/29/25 21:58 04/29/25 21:58 <Kemar Millan MD - Last Filed: 04/30/25 19:31> Labs: Lab Results 04/29/25 04/30/25 04/30/25 Range/Units 21:58 00:24 08:03 WBC 9.9 (4.5-10.0) K/mm3 RBC 5.04 (4.6-6.20) M/mm3 Hgb 15.3 (14.0-18.0) g/dL Hct 46.4 (42.0-52.0) % MCV 92.1 (80-100) fl MCH 30.4 (26-34) pg MCHC 33.0 (32-36) g/dl RDW 12.7 (11.5-14.5) % Plt Count 311 (150-375) k/mm3 MPV 9.4 (7.4-10.4) fl Immature Gran % (Auto) 0.2 (0-0.5) % Neut % (Auto) 44.4 L (45.5-73.1) % Lymph % (Auto) 48.0 H (18.3-44.2) % Schleicher % (Auto) 5.5 (2.6-8.5) % Eos % (Auto) 1.3 (0-4.4) % Baso % (Auto) 0.6 (0.2-1.2) % Lymph # (Auto) 4.74 H (0.9-3.2) K/mm3 Schleicher # (Auto) 0.5 (0.1-0.6) K/mm3 Eos # (Auto) 0.1 (0-0.3) K/mm3 Baso # (Auto) 0.1 (0.0-0.1) K/mm3 Abs Immat Gran (auto) 0.02 (0.00-0.031) K/mm3 Absolute Neuts (auto) 4.4 (1.3-6.7) K/mm3 Absolute Nucleated RBC 0.000 (0.0-0.012) K/mm3 Nucleated RBC % 0.0 (0.0-0.2) % Sodium 146 H (137-145) mmol/L Potassium 3.2 L (3.4-5.0) mmol/L Chloride 108 H (98-107) mmol/L Carbon Dioxide 24 (22-30) mmol/L Anion Gap 14 H (4-12) mmol/L BUN 7 L (9-20) mg/dL Creatinine 0.97 (0.7-1.3) mg/dL Estim Creat Clear Calc 113 ml/min Estimated GFR > 60 (59 - ) Glucose 130 H (65-110) mg/dL Calcium 9.1 (8.4-10.2) mg/dL Total Bilirubin 0.7 (0.2-1.3) mg/dL AST 46 (17-59) U/L ALT 38 (6-50) U/L Alkaline Phosphatase 81 (38-126) U/L Total Protein 7.0 (6.3-8.2) g/dL Albumin 4.6 (3.5-5.1) g/dL TSH (Reflex) 2.850 (0.465-4.68) uIU/mL Urine Color Yellow (Yellow) Urine Appearance Clear (Clear) Urine pH 7.0 (5.0-9.0) Ur Specific [place] 1.006 (1.001-1.035) Urine Protein Negative (Negative) mg/dL Urine Glucose (UA) Negative (Negative) mg/dL Urine Ketones Negative (Negative) mg/dL Ur Blood (Man) Negative (Negative) Urine Nitrate Negative (Negative) Urine Bilirubin Negative (Negative) Urine Urobilinogen 0.2 (<2.0) mg/dL Leukocyte Esterase Rfl Negative (Negative) GERARDO/UL Urine Opiates Screen Negative (Negative) Urine Methadone Screen Negative (Negative) Ur Barbiturates Screen Negative (Negative) Ur Phencyclidine Scrn Negative (Negative) Ur Amphetamine Screen Negative (Negative) U Benzodiazepines Scrn Negative (Negative) Urine Cocaine Screen Negative (Negative) U Cannabinoids Screen Negative (Negative) Ethyl Alcohol 329 H* 141 (<10) mg/dL 04/30/25 Range/Units 11:47 WBC (4.5-10.0) K/mm3 RBC (4.6-6.20) M/mm3 Hgb (14.0-18.0) g/dL Hct (42.0-52.0) % MCV (80-100) fl MCH (26-34) pg MCHC (32-36) g/dl RDW (11.5-14.5) % Plt Count (150-375) k/mm3 MPV (7.4-10.4) fl Immature Gran % (Auto) (0-0.5) % Neut % (Auto) (45.5-73.1) % Lymph % (Auto) (18.3-44.2) % Schleicher % (Auto) (2.6-8.5) % Eos % (Auto) (0-4.4) % Baso % (Auto) (0.2-1.2) % Lymph # (Auto) (0.9-3.2) K/mm3 Sch[place]icher # (Auto) (0.1-0.6) K/mm3 Eos # (Auto) (0-0.3) K/mm3 Baso # (Auto) (0.0-0.1) K/mm3 Abs Immat Gran (auto) (0.00-0.031) K/mm3 Absolute Neuts (auto) (1.3-6.7) K/mm3 Absolute Nucleated RBC (0.0-0.012) K/mm3 Nucleated RBC % (0.0-0.2) % Sodium (137-145) mmol/L Potassium (3.4-5.0) mmol/L Chloride (98-107) mmol/L Carbon Dioxide (22-30) mmol/L Anion Gap (4-12) mmol/L BUN (9-20) mg/dL Creatinine (0.7-1.3) mg/dL Estim Creat Clear Calc ml/min Estimated GFR (59 - ) Glucose (65-110) mg/dL Calcium (8.4-10.2) mg/dL Total Bilirubin (0.2-1.3) mg/dL AST (17-59) U/L ALT (6-50) U/L Alkaline Phosphatase (38-126) U/L Total Protein (6.3-8.2) g/dL Albumin (3.5-5.1) g/dL TSH (Reflex) (0.465-4.68) uIU/mL Urine Color (Yellow) Urine Appearance (Clear) Urine pH (5.0-9.0) Ur Specific [place] (1.001-1.035) Urine Protein (Negative) mg/dL Urine Glucose (UA) (Negative) mg/dL Urine Ketones (Negative) mg/dL Ur Blood (Man) (Negative) Urine Nitrate (Negative) Urine Bilirubin (Negative) Urine Urobilinogen (<2.0) mg/dL Leukocyte Esterase Rfl (Negative) GERARDO/UL Urine Opiates Screen (Negative) Urine Methadone Screen (Negative) Ur Barbiturates Screen (Negative) Ur Phencyclidine Scrn (Negative) Ur Amphetamine Screen (Negative) U Benzodiazepines Scrn (Negative) Urine Cocaine Screen (Negative) U Cannabinoids Screen (Negative) Ethyl Alcohol 60 (<10) mg/dL <Kemar Millan MD - Last Filed: 04/30/25 19:31> Lab Results 04/29/25 04/30/25 04/30/25 Range/Units 21:58 00:24 08:03 WBC 9.9 (4.5-10.0) K/mm3 RBC 5.04 (4.6-6.20) M/mm3 Hgb 15.3 (14.0-18.0) g/dL Hct 46.4 (42.0-52.0) % MCV 92.1 (80-100) fl MCH 30.4 (26-34) pg MCHC 33.0 (32-36) g/dl RDW 12.7 (11.5-14.5) % Plt Count 311 (150-375) k/mm3 MPV 9.4 (7.4-10.4) fl Immature Gran % (Auto) 0.2 (0-0.5) % Neut % (Auto) 44.4 L (45.5-73.1) % Lymph % (Auto) 48.0 H (18.3-44.2) % Schleicher % (Auto) 5.5 (2.6-8.5) % Eos % (Auto) 1.3 (0-4.4) % Baso % (Auto) 0.6 (0.2-1.2) % Lymph # (Auto) 4.74 H (0.9-3.2) K/mm3 [place] # (Auto) 0.5 (0.1-0.6) K/mm3 Eos # (Auto) 0.1 (0-0.3) K/mm3 Baso # (Auto) 0.1 (0.0-0.1) K/mm3 Abs Immat Gran (auto) 0.02 (0.00-0.031) K/mm3 Absolute Neuts (auto) 4.4 (1.3-6.7) K/mm3 Absolute Nucleated RBC 0.000 (0.0-0.012) K/mm3 Nucleated RBC % 0.0 (0.0-0.2) % Sodium 146 H (137-145) mmol/L Potassium 3.2 L (3.4-5.0) mmol/L Chloride 108 H (98-107) mmol/L Carbon Dioxide 24 (22-30) mmol/L Anion Gap 14 H (4-12) mmol/L BUN 7 L (9-20) mg/dL Creatinine 0.97 (0.7-1.3) mg/dL Estim Creat Clear Calc 113 ml/min Estimated GFR > 60 (59 - ) Glucose 130 H (65-110) mg/dL Calcium 9.1 (8.4-10.2) mg/dL Total Bilirubin 0.7 (0.2-1.3) mg/dL AST 46 (17-59) U/L ALT 38 (6-50) U/L Alkaline Phosphatase 81 (38-126) U/L Total Protein 7.0 (6.3-8.2) g/dL Albumin 4.6 (3.5-5.1) g/dL TSH (Reflex) 2.850 (0.465-4.68) uIU/mL Urine Color Yellow (Yellow) Urine Appearance Clear (Clear) Urine pH 7.0 (5.0-9.0) Ur Specific [place] 1.006 (1.001-1.035) Urine Protein Negative (Negative) mg/dL Urine Glucose (UA) Negative (Negative) mg/dL Urine Ketones Negative (Negative) mg/dL Ur Blood (Man) Negative (Negative) Urine Nitrate Negative (Negative) Urine Bilirubin Negative (Negative) Urine Urobilinogen 0.2 (<2.0) mg/dL Leukocyte Esterase Rfl Negative (Negative) GERARDO/UL Urine Opiates Screen Negative (Negative) Urine Methadone Screen Negative (Negative) Ur Barbiturates Screen Negative (Negative) Ur Phencyclidine Scrn Negative (Negative) Ur Amphetamine Screen Negative (Negative) U Benzodiazepines Scrn Negative (Negative) Urine Cocaine Screen Negative (Negative) U Cannabinoids Screen Negative (Negative) Ethyl Alcohol 329 H* 141 (<10) mg/dL 04/30/25 Range/Units 11:47 WBC (4.5-10.0) K/mm3 RBC (4.6-6.20) M/mm3 Hgb (14.0-18.0) g/dL Hct (42.0-52.0) % MCV (80-100) fl MCH (26-34) pg MCHC (32-36) g/dl RDW (11.5-14.5) % Plt Count (150-375) k/mm3 MPV (7.4-10.4) fl Immature Gran % (Auto) (0-0.5) % Neut % (Auto) (45.5-73.1) % Lymph % (Auto) (18.3-44.2) % Sch[place]icher % (Auto) (2.6-8.5) % Eos % (Auto) (0-4.4) % Baso % (Auto) (0.2-1.2) % Lymph # (Auto) (0.9-3.2) K/mm3 [place] # (Auto) (0.1-0.6) K/mm3 Eos # (Auto) (0-0.3) K/mm3 Baso # (Auto) (0.0-0.1) K/mm3 Abs Immat Gran (auto) (0.00-0.031) K/mm3 Absolute Neuts (auto) (1.3-6.7) K/mm3 Absolute Nucleated RBC (0.0-0.012) K/mm3 Nucleated RBC % (0.0-0.2) % Sodium (137-145) mmol/L Potassium (3.4-5.0) mmol/L Chloride (98-107) mmol/L Carbon Dioxide (22-30) mmol/L Anion Gap (4-12) mmol/L BUN (9-20) mg/dL Creatinine (0.7-1.3) mg/dL Estim Creat Clear Calc ml/min Estimated GFR (59 - ) Glucose (65-110) mg/dL Calcium (8.4-10.2) mg/dL Total Bilirubin (0.2-1.3) mg/dL AST (17-59) U/L ALT (6-50) U/L Alkaline Phosphatase (38-126) U/L Total Protein (6.3-8.2) g/dL Albumin (3.5-5.1) g/dL TSH (Reflex) (0.465-4.68) uIU/mL Urine Color (Yellow) Urine Appearance (Clear) Urine pH (5.0-9.0) Ur Specific [place] (1.001-1.035) Urine Protein (Negative) mg/dL Urine Glucose (UA) (Negative) mg/dL Urine Ketones (Negative) mg/dL Ur Blood (Man) (Negative) Urine Nitrate (Negative) Urine Bilirubin (Negative) Urine Urobilinogen (<2.0) mg/dL Leukocyte Esterase Rfl (Negative) GERARDO/UL Urine Opiates Screen (Negative) Urine Methadone Screen (Negative) Ur Barbiturates Screen (Negative) Ur Phencyclidine Scrn (Negative) Ur Amphetamine Screen (Negative) U Benzodiazepines Scrn (Negative) Urine Cocaine Screen (Negative) U Cannabinoids Screen (Negative) Ethyl Alcohol 60 (<10) mg/dL <Ladarius Pa MD - Last Filed: 04/30/25 15:05> Imaging Data Attestation: I personally reviewed and interpreted this imaging study as follows: <Kemar Millan MD - Last Filed: 04/30/25 19:31> My impression: Impressions Chest X-Ray 04/29/25 22:25 IMPRESSION: No acute cardiopulmonary pathology. <Kemar Millan MD - Last Filed: 04/30/25 19:31> Radiologist's impression: ITS Impressions Chest X-Ray 04/29/25 22:25 IMPRESSION: No acute cardiopulmonary pathology. <Kemar Millan MD - Last Filed: 04/30/25 19:31> ITS Impressions Chest X-Ray 04/29/25 22:25 IMPRESSION: No acute cardiopulmonary pathology. <Ladarius Pa MD - Last Filed: 04/30/25 15:05> Discharge Plan Discharge Clinical Impression: Alcoholic intoxication, Suicidal ideation, Schizophrenia <Kemar Millan MD - Last Filed: 04/30/25 19:31> Patient Disposition: Home <Kemar Millan MD - Last Filed: 04/30/25 19:31> Condition: Stable <Kemar Millan MD - Last Filed: 04/30/25 19:31> Instructions: Antibiotic Form <Kemar Millan MD - Last Filed: 04/30/25 19:31> Patient Language: [place] <Kemar Millan MD - Last Filed: 04/30/25 19:31> Prescriptions: No Action No Home Medications <Kemar Millan MD - Last Filed: 04/30/25 19:31> Follow-up/Referrals: Jayce Delgado MD [Primary Care Provider] - <Kemar Millan MD - Last Filed: 04/30/25 19:31>
--- OUTSIDE RECORDS SUMMARY | 2025-04-29 21:54 | XMS_ITS | Clinical Summary ---
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
--- OUTSIDE RECORDS SUMMARY | 2025-04-29 21:54 | XMS_ITS | Referral Summary ---
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
--- OUTSIDE RECORDS SUMMARY | 2025-04-29 21:55 | XMS_ITS ---
Author Organization [facility] Address [address] [place] [address] Care Team Providers Care Orthoptist Name Role Phone Jayce Delgado Primary Care Provider Angella Ramos Unavailable [phone] REASON FOR VISIT follow up Encounters Encounter Location Date Provider [address] [place] [address] 03/18/2025 Jayce Delgado Plan Of Treatment No Information Progress Notes * Tenzin KRISHNANDOB: [birth year] (24 yo M)Acc No.[id number]:03/18/2025 UNLOCKED PROGRESS NOTE Progress Notes Patient: Tenzin PALOMO Provider: Parviz Delgado :2000 A ge:24 Y S ex:Male Date:03/18/2025 Phone: Address:[address] [place] [address], [address], [place], [place] Subjective: * Chief Complaints: * 1 . Follow up. * Medical History: Objective: * Vitals: Assessment: Plan: * Treatment: * * Electronic signature of Jennifer Delgado , [id number] on 04/29/2025 at 09:54 PM CDT Sign off status: Pending * Provider: Parviz Delgado Date: 0 03/18/2025 Generated for Bird figueredo/Favian/Shanel on: 0 04/29/2025 09:54 PM CDT
--- OUTSIDE RECORDS SUMMARY | 2025-04-29 21:55 | XMS_ITS | Patient Health Record ---
Author Organization [facility] Address [address] [place] [address] Care Team Providers Care Contact Lens Blocker And Cutter Name Role Phone Jayce Delgado Primary Care Provider [phone] Angella Ramos Unavailable [phone] Leonel Small Unavailable [phone] Elissa Pope Unavailable [phone] Jacey Dallas Unavailable [phone] Allergies No Known Allergies Results Component Value Reference Range Notes Ova + Parasite Exam Reviewed date:03/16/2025 01:50:47 PM Interpretation: Performing Lab:[facility], [address] [place] [address], Phone - [phone], Director - Randell Notes/Report: Clinical Information:SRC:ST Clinical Information:SRC:ST Ova + Parasite Exam Final report These results were obtained using wet preparation(s) and trichrome stained smear. This test does not include testing for Cryptosporidium parvum, Cyclospora, or Microsporidia. Result 1 No ova, cysts, or parasites seen. . One negative specimen does not rule out the possibility of a parasitic infection. Reason For Referral No Information Medications Medication SIG (Take, Route, Frequency, Duration) Notes Start Date End Date Status Vraylar 3 MG 1 capsule Orally Onc e a day for 30 days 03/25/2024 Not-Taking Triamcinolone Acetonide 0.1 % 1 application Externally twice a day for 30 days As needed to gluteal fold and perianal skin until resolved 02/07/2025 Active Ketoconazole 2 % 1 application Externally Once a day for 30 days As needed at night to gluteal fold and perianal skin until resolved 02/07/2025 Active Benztropine Mesylate 0.5 MG 1 tablet Orally twice a day for 30 days 10/22/2024 Not-Taking Nac 600 600 MG 1 capsule Orally Onc e a day for 30 day(s) Active hydrOXYzine HCl 25 MG 1 tablet as needed Orally twice a day for 30 days As needed 04/23/2024 Not-Taking Mirtazapine 15 MG 1 tablet at bedtime Orally Once a day for 30 days 10/22/2024 Not-Taking Social History Tobacco Use: Social History Observation Description Date Details (start date - stop date) Unknown Alcohol Screen (Audit-C) Question Answer Notes Did [...] GED 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 Stress is when someone feels tense, nervous, anxious, or can\t sleep at night because their mind is troubled Quite a bit In the past year have you sp ent more than 2 nights in a row in a skilled nursing, group home, mcfp center, or juvenile correctional facility? 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) 018 Active confirmed R/t heavy drug use in past Vital Signs Heart Rate 70 /min 02/04/2025 Temperature 98.1 degrees Fahrenheit 02/04/2025 Respiratory Rate 16 /min 01/19/2025 Blood pressure diastolic 64 mm Hg 02/04/2025 Oximetry 98 % 02/04/2025 Height 69 in 02/04/2025 Blood pressure systolic 128 mm Hg 02/04/2025 Weight 220.6 lbs 02/04/2025 BMI 32.57 kg/m2 02/04/2025 Encounters Encounter Location Date Provider Diagnosis [address] [address] 10/22/2024 Elissa Pope Schizophrenia spectrum disorder with psychotic disorder type not yet determined F29 and Nicotine dependence, unspecified, uncomplicated F17.[address] [place] [address] 01/19/2025 Jayce Delgado Sebaceous cyst L72.3 Formerly [facility], [facility] [address] [place] [address] 02/04/2025 Jayce Delgado Rectal bleeding K62. 5 ; Perianal dermatitis L30.9 ; Abdominal bloating R14.0 ; Hemorrhoid K64.9 ; Fatigue R53.83 and Exposure to potential infection Z20.[address] [place] [address] 12/09/2024 Jacey Dallas [address] [address] 02/04/2025 Jayce Delgado Rectal bleeding K62. 5 ; Abdominal bloating R14.0 ; Fatigue R53.83 and Exposure to potential infection Z20.[address] [facility] [address] [place] [address] 02/07/2025 Jayce Delgado Assessments Encounter Date Diagnosis (ICD Code) Assessment Notes Treatment Notes Treatment Clinical Notes Section Notes 02/04/2025 Rectal bleeding (ICD-10 - K62.5) 01/19/2025 Sebaceous cyst (ICD-10 - L72.3) ADVISED TO AVOID MANIPULATION AND RETURN IF ANY CHANGES IN THE LESIONS OCCUR. 02/04/2025 Rectal bleeding (ICD-10 - K62.5) Suspect due to hemorrhoids. 02/04/2025 Perianal dermatitis (ICD-10 - L30.9) Called both creams to [facility] (due to lack of internet access) 02/04/2025 Abdominal bloating (ICD-10 - R14.0) 10/22/2024 Schizophrenia spectrum disorder with psychotic disorder [...] or be administered own oral medications per [facility] protocols. Provided informed consent with understanding of side effects, adverse effects, risks and benefits as well as alternative treatments as previously discussed and with the above recommended medications & other aspects of the treatment program. Agrees to return sooner if symptoms worsen or suicidal or homicidal ideations occur. 10/22/2024 Nicotine dependence, unspecified, uncomplicated (ICD-10 - F17.200) 02/04/2025 Abdominal bloating (ICD-10 - R14.0) Trial of gluten-free, lactose-free diet. 02/04/2025 Fatigue (ICD-10 - R53.83) 02/04/2025 Hemorrhoid (ICD-10 - K64.9) Increase fiber in diet. Avoid straining. 02/04/2025 Exposure to potential infection (ICD-10 - Z20.9) 02/04/2025 Fatigue (ICD-10 - R53.83) 02/04/2025 Exposure to potential infection (ICD-10 - Z20.9) 02/04/2025 Other Labs ordered i n TE 02/07/2025 due to loss of internet access on 02/04/2025 Plan Of Treatment No Information Insurance Providers Payer Name Payer Address Payer Phone Subscriber Number Group Number Insured Name Patient Relationship to Insured Coverage Start Date Coverage End Date [facility] [email or web address] [facility] [address] [place] [address] [phone] [id number] Eulogio Tenzin Self - patient is the insured 3 [address] [place] [id number] [employer] mer[employer] Self - patient is the insured [address] [place] [id number] Eulogio Tenzin Self - patient is the insured 3 3 [employer] [address] [place] [id number] [id number] Tenzin Krishnan Self - patient is the insured 3 3 [facility] [employer] [facility] [address] [place] [address] [phone] [id number] Tenzin Krishnan Self - patient is the insured 3 5 Medical (General) History Medical History History ICD Code Weight fluctuation fatigue Surgical History Surgery Date(Month/Year) Right and left side hernia surgery. 2008 , 2011 Hospitalization History Reason Date(Month/Year) [facility] health-[facility] 10/2024
[2025-04-29 22:06] LABS: Basophils Absolute Auto 0.1 K/mm3 (0.0-0.1); Basophils Percent Auto 0.6 % (0.2-1.2); Eosinophils Absolute Auto 0.1 K/mm3 (0-0.3); Eosinophils Percent Auto 1.3 % (0-4.4); Hematocrit 46.4 % (42.0-52.0); Hemoglobin 15.3 g/dL (14.0-18.0); Immature Granulocyte Absolute 0.02 K/mm3 (0.00-0.031); Immature Granulocyte Percent A 0.2 % (0-0.5); Lymphocytes Absolute Auto 4.74 K/mm3 (0.9-3.2); Mean Corpuscular Hemoglobin 30.4 pg (26-34); Mean Corpuscular Volume 92.1 fl (80-100); Mean Platelet Volume 9.4 fl (7.4-10.4); Monocytes Absolute Auto 0.5 K/mm3 (0.1-0.6); Monocytes Percent Auto 5.5 % (2.6-8.5); Neutrophils Absolute Auto 4.4 K/mm3 (1.3-6.7); Neutrophils Percent Auto 44.4 % (45.5-73.1); Platelet Count Result 311 k/mm3 (150-375); Red Blood Count 5.04 M/mm3 (4.6-6.20); Red Cell Distribution Width 12.7 % (11.5-14.5); White Blood Count 9.9 K/mm3 (4.5-10.0)
[2025-04-29 22:19] LABS: Alanine Aminotransferase 38 U/L (6-50); Albumin Level 4.6 g/dL (3.5-5.1); Alkaline Phosphatase 81 U/L (38-126); Anion Gap 14 mmol/L (4-12); Aspartate Amino Transferase 46 U/L (17-59); Bilirubin,Total 0.7 mg/dL (0.2-1.3); Blood Urea Nitrogen 7 mg/dL (9-20); Calcium 9.1 mg/dL (8.4-10.2); Carbon Dioxide 24 mmol/L (22-30); Chloride 108 mmol/L (98-107); Estimated CRCL calculation 113 ml/min; Estimated Glomerular Filt Rate > 60; Glucose 130 mg/dL (65-110); Potassium 3.2 mmol/L (3.4-5.0); Sodium 146 mmol/L (137-145)
[2025-04-29] MEDS: ONDANSETRON INJ 4 MG/2 ML VIAL IV PUSH (23:10)
[2025-04-29 23:12] VITALS: BP 112/67; PULSE 88; RESP 19; O2SAT 99
[2025-04-29 23:52] LABS: Ethanol 329 mg/dL (<10)
[2025-04-30 00:38] VITALS: BP 128/90; PULSE 87; RESP 11; O2SAT 99
[2025-04-30 00:39] LABS: Add Urine Microscopic? NO; Appearance Urine Clear (Clear); Bilirubin Urine Negative (Negative); Blood Urine Negative (Negative); Color Urine Yellow (Yellow); Glucose Urine UA Negative (Negative); Ketones Urine Negative (Negative); Leukocyte Esterase Ur Negative LEU/UL (Negative); Nitrate Urine Negative (Negative); Protein Urine Negative (Negative); Specific Grav Ur 1.006 (1.001-1.035); Urobilinogen Urine 0.2 mg/dL (<2.0)
[2025-04-30 00:49] LABS: Amphetamine Screen Urine Negative (Negative); Barbiturate Screen Urine Negative (Negative); Benzodiazepines Screen Urine Negative (Negative); Cannabinoid Screen Urine Negative (Negative); Cocaine Screen Urine Negative (Negative); Methadone Screen Urine Negative (Negative); Opiate Screen Urine Negative (Negative); Phencyclidine Screen Urine Negative (Negative)
[2025-04-30 01:39] VITALS: BP 108/61; PULSE 82; RESP 18; O2SAT 97
[2025-04-30 02:40] VITALS: BP 108/62; PULSE 89; RESP 18; O2SAT 96
[2025-04-30 04:25] VITALS: BP 110/58; PULSE 85; RESP 16; O2SAT 96
[2025-04-30 05:21] VITALS: BP 110/60; PULSE 86; RESP 17; O2SAT 96
[2025-04-30 07:15] VITALS: BP 119/58; PULSE 93; RESP 18; O2SAT 100
[2025-04-30 08:22] LABS: Ethanol 141 mg/dL (<10)
[2025-04-30 12:00] LABS: Ethanol 60 mg/dL (<10)
--- NOTE | 2025-04-30 12:06 | PC.NURSE ---
Crisis called to eval pt. Pt is calm and cooperative.
== END 2025-04-30 14:25 | disposition home or self-care (01) ==
PROVIDERS: Emergency Medicine; Emergency Provider Student in an Organized Health Care Education/Training Program; PCP Internal Medicine
DX: F10.129 Alcohol abuse with intoxication, unspecified (principal); Y90.8 Blood alcohol level of 240 mg/100 ml or more; R45.851 Suicidal ideations; F20.9 Schizophrenia, unspecified; F15.10 Other stimulant abuse, uncomplicated
CPT/HCPCS: 36415; 71045; 80053; 80307; 81003; 82077; 84443; 85025; 96372; 96374; 99284; J2405